=== PATIENT | female | born 1955 | race Caucasian/White ===

== ENCOUNTER 2018-03-16 11:02 | Inpatient (IN) ==
[2018-03-11 15:52] LABS: Appearance,Urine CLEAR; Bacteria,Urine FEW /hpf (0); Bilirubin,Urine NEG (NEG); Color,Urine YELLOW; Glucose,Urine (UA) NEGATIVE (NEG); Leukocyte Esterase,Urine 250 /uL (NEG); Mucus,Urine FEW /hpf (0); Protein,Urine NEG (NEG); Specific Gravity,Urine 1.008 (1.000-1.035); Urine Blood NEG mg/dL (<0.03); Urine RBC 4 /hpf (0-1); Urine Squamous Epithelial Cell 1 /hpf (0-4); Urine WBC 45 /hpf (0-4); Urobilinogen,Urine NEG (NEG)
[2018-03-11 18:28] LABS: Basophils # (Auto) 0 K/mcL (0.0-0.3); Basophils % (Auto) 0.2 % (0.0-2.0); Eosinophils # (Auto) 0 K/mcL (0.0-0.7); Eosinophils % (Auto) 0 % (0.0-7.0); Granulocytes % (Auto) 73.7 % (38.0-78.0); Lymphocytes # (Auto) 2.4 K/mcL (1.5-4.8); Lymphocytes % (Auto) 20.7 % (15.5-49.0); Mean Cell Volume 94.2 fL (80.0-100.0); Mean Corpuscular HGB Conc 32.2 g/dL (31.0-36.0); Mean Corpuscular Hemoglobin 30.4 pg (26.0-34.0); Monocytes # (Auto) 0.6 K/mcL (0.1-0.9); Monocytes % (Auto) 5.4 % (1.0-12.0); Platelet Count 233 K/mcL (140-440); RBC 4.79 M/mcL (4.00-5.20); Red Cell Distribution Width 13.5 % (11.5-14.5)
[2018-03-11 18:59] LABS: Blood Urea Nitrogen 15 mg/dl (8-23)
[~2018-03-16 11:02] MED LIST: ACETAMINOPHEN 500 MG TABLET PO SCH; CELECOXIB 200 MG CAPSULE PO SCH; KETOROLAC 30 MG, ROPIVACAINE HCL/PF 49.5 ML, EPINEPHrine 0.5 MG, 0.9 % SODIUM CHLORIDE ... IV SCH; ceFAZolin 1 GM VIAL IV SCH; oxyCODONE 10 MG TAB.ER.12H PO SCH
[2018-03-16] MEDS ORDERED: IPRATROPIUM/ALBUTEROL 3 ML AMPUL.NEB NEB ONE ×2 (12:50→12:54)
[2018-03-16 13:22] LABS: Appearance,Urine CLEAR; Bacteria,Urine 0 /hpf (0); Bilirubin,Urine NEG (NEG); Color,Urine YELLOW; Glucose,Urine (UA) NEGATIVE (NEG); Leukocyte Esterase,Urine 250 /uL (NEG); Mucus,Urine FEW /hpf (0); Protein,Urine NEG (NEG); Urine Blood NEG mg/dL (<0.03); Urine Hyaline Cast 1 /lpf (0-2); Urine RBC 2 /hpf (0-1); Urine Squamous Epithelial Cell 0 /hpf (0-4); Urine WBC 70 /hpf (0-4); Urobilinogen,Urine NEG (NEG)
[2018-03-16] MEDS ORDERED: METOPROLOL TARTRATE 5 MG/5 ML VIAL IV ONE (13:30)
[2018-03-16] MEDS ORDERED: DEXAMETHASONE 10 MG/ML VIAL IV ONE (13:30)
[2018-03-16] MEDS ORDERED: fentaNYL 100 MCG/2 ML VIAL IV ONE (13:30)
[2018-03-16] MEDS ORDERED: PROPOFOL 200 MG/20 ML VIAL IV ONE (13:30)
[2018-03-16] MEDS ORDERED: HYDROmorphone 2 MG/ML VIAL IV ONE (13:30)
[2018-03-16] MEDS ORDERED: GLYCOPYRROLATE 0.2 MG/ML VIAL IV ONE (13:30)
[2018-03-16] MEDS ORDERED: TRANEXAMIC ACID 1,000 MG/10 ML VIAL IV ONE ×2 (13:30→15:05)
[2018-03-16] MEDS ORDERED: MIDAZOLAM 2 MG/2 ML VIAL IV ONE (13:30)
[2018-03-16] MEDS ORDERED: methylPREDNISolone SOD SUCC 125 MG/2 ML VIAL IV ONE (13:30)
[2018-03-16] MEDS ORDERED: FAMOTIDINE/PF 20 MG/2 ML VIAL IV ONE (13:30)
[2018-03-16] MEDS ORDERED: KETAMINE 100 MG/ML ML IV ONE (13:30)
[2018-03-16] MEDS ORDERED: LIDOCAINE HCL/PF 100 MG/5 ML SYRINGE IV ONE (13:30)
[2018-03-16] MEDS ORDERED: ROPIVACAINE HCL/PF 20 ML VIAL IJ ONE (13:30)
[2018-03-16] MEDS ORDERED: ONDANSETRON 4 MG/2 ML VIAL IV ONE (13:30)
[2018-03-16] MEDS ORDERED: ONDANSETRON 4 MG/2 ML VIAL IV PRN ×2 (13:51→15:05)
[2018-03-16] MEDS ORDERED: fentaNYL 100 MCG/2 ML VIAL IV PRN (13:51)
[2018-03-16] MEDS ORDERED: PROMETHAZINE 25 MG/ML VIAL IM PRN (13:51)
[2018-03-16] MEDS ORDERED: METHOCARBAMOL 1,000 MG/10 ML VIAL IV PRN (13:51)
[2018-03-16] MEDS ORDERED: LACTATED RINGERS 250 ML IV PRN (13:51)
[2018-03-16] MEDS ORDERED: MEPERIDINE 25 MG/ML SYRINGE IV PRN (13:51)
[2018-03-16] MEDS ORDERED: NALOXONE HCL 0.4 MG/ML VIAL IV PRN (13:51)
[2018-03-16] MEDS ORDERED: PROMETHAZINE 25 MG/ML VIAL IV PRN (13:51)
[2018-03-16] MEDS ORDERED: IPRATROPIUM/ALBUTEROL 3 ML AMPUL.NEB NEB PRN (13:51)
[2018-03-16] MEDS ORDERED: FLUMAZENIL 0.1 MG/ML ML IV PRN (13:51)
[2018-03-16] MEDS ORDERED: BENZOCAINE/MENTHOL 1 LOZENGE PO PRN ×2 (13:51→15:05)
[2018-03-16] MEDS ORDERED: HYDROmorphone 2 MG/ML VIAL IV PRN ×2 (13:51→15:05)
[2018-03-16] MEDS ORDERED: MEPERIDINE 50 MG/ML INJECTION IM PRN (13:51)
[2018-03-16] MEDS ORDERED: LACTATED RINGERS 1,000 ML IV SCH (14:00)
[2018-03-16] MEDS ORDERED: GENTAMICIN SULFATE 800 MG/20 ML VIAL IR ONE (14:04)
[2018-03-16] MEDS ORDERED: MAGNESIUM HYDROXIDE 30 ML ORAL.SUSP PO PRN (15:05)
[2018-03-16] MEDS ORDERED: ACETAMINOPHEN 325 MG TABLET PO PRN (15:05)
[2018-03-16] MEDS ORDERED: POLYETHYLENE GLYCOL 3350 17 GM PACKET PO PRN ×2 (15:05→15:08)
[2018-03-16] MEDS ORDERED: FLEETS ADULT ENEMA PR PRN (15:05)
[2018-03-16] MEDS ORDERED: TEMAZEPAM 15 MG CAPSULE PO PRN (15:05)
[2018-03-16] MEDS ORDERED: BISACODYL 10 MG SUPP.RECT PR PRN (15:05)
--- NOTE | 2018-03-16 15:05 | Brief Operative Note ---
Date of procedure: 03/16/18 Pre-op diagnosis: right knee djd severe Post-op diagnosis: same Procedure: right tka with laureen robot Grafts/Implants: Yes Anesthesia: GETA Complications: none Complications Description: 03/16/18 15:04 none Surgeon: Navin Liao Ob/Gyn Physician: Augusto Ferreira Estimated blood loss (cc): 50 Tourniquet Time (Minutes): 50 Specimens Removed/Pathology: none sent Condition: stable Disposition: PACU
[2018-03-16] MEDS ORDERED: CYCLOBENZAPRINE 10 MG TABLET PO PRN (15:08)
[2018-03-16] MEDS: 0.45 % SODIUM CHLORIDE 1,000 ML IV SCH (15:57)
--- NOTE | 2018-03-16 16:15 | XRay Report ---
CLINICAL INFORMATION: Reason for Exam:Post-Op Total Knee COMPARISON: None. FINDINGS: Total knee prostheses is anatomically aligned. No osseous abnormality. Periarticular gas and soft tissue swelling seen as expected IMPRESSION: Negative Interpreted and Authenticated by: Reilly Urbano 03/16/18
--- NOTE | 2018-03-16 16:20 | Operative Note ---
DATE OF OPERATION: 03/16/2018 PREOPERATIVE DIAGNOSIS: Right knee degenerative arthritis, severe. POSTOPERATIVE DIAGNOSIS: Right knee degenerative arthritis, severe. PROCEDURE: Right total knee arthroplasty using the LUBNA robot. SURGEON: Navin Liao M.D. MEDICAL UNDERWRITER: Augusto Ferreira PA-C. ANESTHESIA: General LMA anesthesia. TOURNIQUET TIME: 50 minutes at 270 pounds. ESTIMATED BLOOD LOSS: 50 mL. COMPLICATIONS: None. DESCRIPTION OF PROCEDURE: The patient was brought to the operating room and put to sleep with general LMA anesthesia. Once asleep, the patient had the right leg sterilely prepped and draped in the usual sterile fashion. Timeout was performed. We confirmed the operative site both by consent form and x-rays. The patient's knee was exposed with a midline incision after confirming the operative site. We then exposed the joint showing severe arthritis in all three compartments. We then proceeded with placing the pins for the robotic total knee. Two pins above and below the knee were placed, and the arrays were placed. We registered the center of hip rotation, medial and lateral malleolus. Thirty points on the femur, thirty points on the tibia were all registered. We then balanced the knee at both 90 and 15 degrees in varus valgus planes. Once done, we then brought in the robot. The saw was inserted and retractors placed. We then made the bony cuts, both on the femur and the tibia. This aligned and balanced the knee perfectly. We removed these bony fragments and then removed the remnants of the meniscus. Spurs were removed posteriorly and medial and laterally. We then trialed the component. These were tapped into place on both the femur and the tibia. Size 3 components with a 9 mm poly which gave us 3.5 degree flexion contracture. She started at 4 to 5. It gave us about 3 degrees of varus. She started at 4 to 5 degrees of varus. This corrected both planes. We irrigated thoroughly, perfectly balanced, and then we cut the patella measuring 22 mm to 12 mm and cemented into place an oval 36 x 10 mm poly. All these components were then cemented into place, taking any excess cement away. The bone was prepared with pulse lavage and CarboJet to make sure the bone penetrated well. There was a small tumor which seemed to be a bony island in the anterior femur metaphyseal region. This was removed and sent for pathology. This did not look to be aggressive, but just to be safe. We then inserted cement into the void and irrigated thoroughly and placed the knee at 45 degrees. We deflated the tourniquet at approximately 50 minutes. Total pressure was 270 pounds. The patient tolerated this well. There were no complications. The wound was closed with #1 Stratafix on the capsular layer, a Stratafix in the fatty layer and 2-0 Vicryl and vandana. The patient tolerated this well. There was no complication. The patient had a sterile bandage applied. All pins were removed, intra-articular pins were removed and accounted for. RBH:tucker Job ID: [id number] Doc ID: [id number] Navin Liao MD
[2018-03-16] MEDS: KETOROLAC 15 MG/ML VIAL IV SCH ×2 (17:44→23:54)
[2018-03-16] MEDS: metFORMIN 500 MG TABLET PO SCH (17:44)
[2018-03-16] MEDS: oxyCODONE/APAP 5/325MG TABLET PO PRN (17:52)
[2018-03-16] MEDS: ceFAZolin 1 GM VIAL IV SCH (20:53)
[2018-03-16] MEDS: CALCIUM W/VIT D3 500 MG TABLET PO SCH (20:54)
[2018-03-16] MEDS: METHADONE 5 MG TABLET PO SCH (20:54)
[2018-03-16] MEDS: HYDROXYCHLOROQUINE 200 MG TABLET PO SCH (20:55)
[2018-03-16] MEDS: FAMOTIDINE 20 MG TABLET PO SCH (20:55)
[2018-03-16] MEDS: SIMVASTATIN 40 MG TABLET PO SCH (20:57)
[2018-03-16] MEDS: MAGNESIUM OXIDE 400 MG TABLET PO SCH (20:57)
[2018-03-16] MEDS: traZODone HCL 150 MG TABLET PO SCH (20:57)
[2018-03-16] MEDS: DOCUSATE SODIUM 100 MG CAPSULE PO SCH (20:58)
[2018-03-16] MEDS ORDERED: HYDROCORTISONE 20 MG PO SCH (21:00)
[2018-03-16] MEDS: ASPIRIN 325 MG ENTERIC COATED TABLET PO SCH (21:03)
[2018-03-16] MEDS: SENNOSIDES 1 TABLET PO SCH (21:04)
[2018-03-16] MEDS: BECLOMETHASONE DIPROPIONATE 40MCG INHALER INH SCH (21:57)
[2018-03-16] MEDS: 0.9 % SODIUM CHLORIDE 10 ML SYRINGE IV SCH (22:03)
[2018-03-17] MEDS: oxyCODONE/APAP 5/325MG TABLET PO PRN ×5 (00:16→18:02)
[2018-03-17] MEDS: 0.45 % SODIUM CHLORIDE 1,000 ML IV SCH ×3 (02:07→21:30)
[2018-03-17] MEDS: traMADol 50 MG TABLET PO PRN ×2 (03:09→12:33)
[2018-03-17] MEDS: ceFAZolin 1 GM VIAL IV SCH (05:02)
[2018-03-17] MEDS: KETOROLAC 15 MG/ML VIAL IV SCH ×3 (06:03→18:01)
[2018-03-17] MEDS: 0.9 % SODIUM CHLORIDE 10 ML SYRINGE IV SCH ×3 (06:03→21:30)
[2018-03-17] MEDS: LEVOTHYROXINE SODIUM 112 MCG TABLET PO SCH (07:02)
[2018-03-17] MEDS: LEVOTHYROXINE 25 MCG TABLET PO SCH (07:02)
--- NOTE | 2018-03-17 07:32 | Orthopedic Progress Note ---
Subjective Patient information: Note initiated : 03/17/18 at 7:31 am Service Date, if different from initiated Date: [] Patient: Danielle Maya 62 y/o F admitted on 03/16/18 for Left Total Knee Arthroplasty - Mario. Chief Complaint: [Pt is stable this morning on post operative day 1 without any significant concerns or complaints. Patients vital signs have remained stable. Patients dressing is dry and is grossly instact from a neurovascular and motor standpoint. Patients 10 point ROS is otherwise negative. ] Objective Vital signs: Vital Signs Temp Pulse Resp BP Pulse Ox 03/17/18 04:00 98.7 F 82 12 143/78 95 03/17/18 00:00 97.5 F 86 12 129/72 94 03/16/18 22:40 91 03/16/18 20:00 97.9 F 94 H 12 119/81 96 03/16/18 17:10 124/76 92 03/16/18 16:25 108/75 94 03/16/18 16:11 95 03/16/18 16:10 116/70 93 03/16/18 16:05 116/78 95 03/16/18 15:55 120/76 95 03/16/18 15:45 98.1 F 99 H 17 120/72 98 03/16/18 15:40 100 H 17 122/68 98 03/16/18 15:35 101 H 13 114/86 97 03/16/18 15:30 102 H 20 105/64 99 03/16/18 15:25 105 H 17 115/69 95 03/16/18 15:20 108 H 20 112/87 97 03/16/18 15:15 97.9 F 88 18 127/65 97 03/16/18 11:50 96 H 20 116/79 97 Intake and Output 03/16/18 03/17/18 03/17/18 21:59 05:59 13:59 Intake Total 2660 / 2660 1850 / 1850 Output Total 1280 / 1280 400 / 400 200 / 200 Balance 1380 / 1380 1450 / 1450 -200 / -200 Intake: IV 1500 / 1500 Oral 1160 / 1160 1850 / 1850 Output: Void Amount 1250 / 1250 400 / 400 200 / 200 Estimated Blood Loss 30 / 30 Other: Weight 278 lb Intake & Output: Intake & Output 03/16/18 03/17/18 03/17/18 21:59 05:59 13:59 Intake Total 2660 / 2660 1850 / 1850 Output Total 1280 / 1280 400 / 400 200 / 200 Balance 1380 / 1380 1450 / 1450 -200 / -200 Weight 278 lb Intake: IV 1500 / 1500 Oral 1160 / 1160 1850 / 1850 Output: Void Amount 1250 / 1250 400 / 400 200 / 200 Estimated Blood Loss Incision: Yes healing Incision clean and dry: Yes Dressing: Yes clean Weight bearing status: full Neurological exam IM: Yes motor sensory intact, Yes neurovascular intact Extremities exam IM: Yes Foot pink and warm, Yes neurovascular intact - Labs CBC & BMP: 03/17/18 04:54 03/11/18 14:03 Labs: 03/17/18 03/11/18 04:54 14:03 Hgb 14.6 Hct 36.6 45.1 Assessment and Plan (1) Hx of total knee arthroplasty The patient has been educated regarding dressing care, Physical Therapy recommendations, home exercises, restrictions, and follow up appointments. The patient has had all necessary DME prescribed. The patient has remained relatively stable during their hospital course. Status: Acute
--- NOTE | 2018-03-17 07:40 | Discharge Summary ---
Ortho Discharge - TKA - Patient Instructions Diet: Regular Diet Activity: activity as tolerated, weight bearing as tolerated Total Knee Protocol: For Total Knee: Start ROM HARJIT with stationary bike or rocking chair. Work on gaining full extension of knee. Posterior dislocation precautions provided. Hip abductor strengthening and gait training instructions provided. Apply Cryocuff as instructed. Dressing Care: May shower in 3 days, Aquacel Ag - leave on for 5 days Additional Instructions: CPM for home use - Problem Maintenance (1) Hx of total knee arthroplasty Status: Acute - Follow Up Plan Follow Up Appointments: Augusto Ferreira PA-C [Physician [employer]] - 03/31/18 3:00 pm Disposition: Xfer SNF Prognosis: Good Rehab Potential: Good I certify that the patient requires SNF services: No Overall status at discharge: patient is progressing back to baseline - Orders For Discharge Prescriptions: Aspirin [Ecotrin] 325 mg PO BID #60 tab.ec Docusate Sodium [Colace] 100 mg PO BID #60 capsule oxyCODONE/APAP [Percocet 5-325 mg] 1 - 2 tab PO Q4HP PRN #75 tablet PRN Reason: Pain Level 3-6
[2018-03-17] MEDS ORDERED: LEVOTHYROXINE SODIUM 137 MCG PO SCH (09:00)
[2018-03-17] MEDS ORDERED: DHEA PO SCH (09:00)
[2018-03-17] MEDS: HYDROCORTISONE 20 MG PO SCH (09:24)
[2018-03-17] MEDS: DOCUSATE SODIUM 100 MG CAPSULE PO SCH ×2 (09:25→21:14)
[2018-03-17] MEDS: SERTRALINE 50 MG TABLET PO SCH (09:25)
[2018-03-17] MEDS: FISH OIL 1,000 MG CAPSULE PO SCH (09:25)
[2018-03-17] MEDS: metFORMIN 500 MG TABLET PO SCH ×2 (09:26→18:01)
[2018-03-17] MEDS: FAMOTIDINE 20 MG TABLET PO SCH ×2 (09:26→21:18)
[2018-03-17] MEDS: METHADONE 5 MG TABLET PO SCH ×3 (09:26→21:16)
[2018-03-17] MEDS: CALCIUM W/VIT D3 500 MG TABLET PO SCH ×2 (09:26→21:16)
[2018-03-17] MEDS: MAGNESIUM OXIDE 400 MG TABLET PO SCH ×2 (09:26→21:14)
[2018-03-17] MEDS: FUROSEMIDE 20 MG TABLET PO SCH (09:26)
[2018-03-17] MEDS: LISINOPRIL 5 MG TABLET PO SCH (09:26)
[2018-03-17] MEDS: HYDROXYCHLOROQUINE 200 MG TABLET PO SCH ×2 (09:26→21:16)
[2018-03-17] MEDS: ASPIRIN 325 MG ENTERIC COATED TABLET PO SCH ×2 (09:26→21:25)
[2018-03-17] MEDS: PYRIDOXINE 100 MG TABLET PO SCH (09:27)
[2018-03-17] MEDS: BECLOMETHASONE DIPROPIONATE 40MCG INHALER INH SCH ×2 (09:29→21:18)
[2018-03-17] MEDS: FLUTICASONE PROPIONATE SPRAY.NAS NS PRN (09:29)
[2018-03-17] MEDS ORDERED: HYDROCORTISONE 20 MG PO SCH (15:00)
--- NOTE | 2018-03-17 15:43 | Surgical Pathology Report ---
HISTOLOGY SPECIMEN MICROSCOPIC DIAGNOSIS BONE, LEFT FEMUR, BIOPSY: -- MULTIPLE PORTIONS OF DEGENERATED CARTILAGE WITH A FEW MINUTE FRAGMENTS OF LAMELLAR BONE. (SEE COMMENT) -- NO MALIGNANT FEATURES IDENTIFIED. (ACP:djf) COMMENT: The biopsy has multiple fragmented portions of degenerated hyalin cartilage with rare minute fragments of lamellar bone. Areas of marked reactive change in noted within portions of cartilage along with irregular areas of ossification. The changes are suggestive of an enchondroma or exostosis (osteochondroma). Clinical and radiographic correlation is recommended. No malignant features are seen. PROCEDURAL IMPRESSION Left knee osteoarthritis. GROSS DESCRIPTION Received in formalin labeled with the patient information, are multiple firm, rough surfaced yellow to pink-joseph bone fragments, in aggregate 2.5 x 1.0 x 0.1 cm. The specimen is filtered and entirely submitted - one cassette, following decalcification. (STS:sln) Electronically Signed by: Ravi Rincon M.D.
[2018-03-17] MEDS: traZODone HCL 150 MG TABLET PO SCH (21:14)
[2018-03-17] MEDS: SIMVASTATIN 40 MG TABLET PO SCH (21:14)
[2018-03-17] MEDS: SENNOSIDES 1 TABLET PO SCH (21:15)
[2018-03-18] MEDS: oxyCODONE/APAP 5/325MG TABLET PO PRN ×6 (00:03→20:30)
[2018-03-18] MEDS: KETOROLAC 15 MG/ML VIAL IV SCH ×3 (00:03→12:35)
[2018-03-18] MEDS: 0.9 % SODIUM CHLORIDE 10 ML SYRINGE IV SCH ×3 (06:03→20:28)
[2018-03-18] MEDS: LEVOTHYROXINE SODIUM 112 MCG TABLET PO SCH (06:57)
[2018-03-18] MEDS: LEVOTHYROXINE 25 MCG TABLET PO SCH (06:58)
[2018-03-18] MEDS: metFORMIN 500 MG TABLET PO SCH ×2 (08:00→17:42)
[2018-03-18] MEDS: 0.45 % SODIUM CHLORIDE 1,000 ML IV SCH ×2 (09:06→18:35)
[2018-03-18] MEDS: CALCIUM W/VIT D3 500 MG TABLET PO SCH ×2 (09:07→20:29)
[2018-03-18] MEDS: DOCUSATE SODIUM 100 MG CAPSULE PO SCH ×2 (09:07→20:29)
[2018-03-18] MEDS: LISINOPRIL 5 MG TABLET PO SCH (09:08)
[2018-03-18] MEDS: FAMOTIDINE 20 MG TABLET PO SCH ×2 (09:09→20:29)
[2018-03-18] MEDS: FISH OIL 1,000 MG CAPSULE PO SCH (09:09)
[2018-03-18] MEDS: MAGNESIUM OXIDE 400 MG TABLET PO SCH ×2 (09:09→20:29)
[2018-03-18] MEDS: HYDROXYCHLOROQUINE 200 MG TABLET PO SCH ×2 (09:09→20:29)
[2018-03-18] MEDS: SERTRALINE 50 MG TABLET PO SCH (09:09)
[2018-03-18] MEDS: FUROSEMIDE 20 MG TABLET PO SCH (09:10)
[2018-03-18] MEDS: METHADONE 5 MG TABLET PO SCH ×3 (09:10→20:30)
[2018-03-18] MEDS: PYRIDOXINE 100 MG TABLET PO SCH (09:12)
[2018-03-18] MEDS: ASPIRIN 325 MG ENTERIC COATED TABLET PO SCH (09:12)
[2018-03-18] MEDS: BECLOMETHASONE DIPROPIONATE 40MCG INHALER INH SCH ×2 (09:21→20:31)
[2018-03-18] MEDS: FLUTICASONE PROPIONATE SPRAY.NAS NS PRN (09:22)
[2018-03-18] MEDS: HYDROCORTISONE 20 MG PO SCH (09:27)
[2018-03-18] MEDS: ONDANSETRON ODT 4 MG TABLET SL PRN (13:06)
[2018-03-18] MEDS ORDERED: WARFARIN 3 MG TABLET PO SCH (14:00)
[2018-03-18] MEDS: traMADol 50 MG TABLET PO PRN (14:32)
[2018-03-18] MEDS ORDERED: HYDROCORTISONE 20 MG PO SCH (15:00)
--- NOTE | 2018-03-18 17:36 | Orthopedic Progress Note ---
Subjective Patient information: Note initiated : 03/18/18 at 5:34 pm Service Date, if different from initiated Date: [] Patient: Danielle Maya 62 y/o F admitted on 03/16/18 for Left Total Knee Arthroplasty - Mario. Chief Complaint: [minimal pain and is walking well with no cp no sob ] Objective Vital signs: Vital Signs Temp Pulse Resp BP Pulse Ox 03/18/18 12:00 97.7 F 85 14 120/79 94 03/18/18 08:00 95 03/18/18 07:15 97.7 F 83 14 119/76 94 03/18/18 04:00 97.9 F 85 14 126/81 94 03/18/18 00:00 97.5 F 82 14 149/79 94 03/17/18 20:00 98.5 F 87 14 146/80 95 Intake and Output 03/18/18 03/18/18 03/18/18 05:59 13:59 21:59 Intake Total 500 / 500 1160 / 1160 800 / 800 Output Total 1500 / 1500 650 / 650 1450 / 1450 Balance -1000 / -1000 510 / 510 -650 / -650 Intake: Oral 500 / 500 1160 / 1160 800 / 800 Output: Void Amount 1500 / 1500 650 / 650 1450 / 1450 Other: Meal Lunch Nourishment/Supplement Percent of Meal Consumed 100% 100% # Voids 2 1 Intake & Output: Intake & Output 03/18/18 03/18/18 03/18/18 05:59 13:59 21:59 Intake Total 500 / 500 1160 / 1160 800 / 800 Output Total 1500 / 1500 650 / 650 1450 / 1450 Balance -1000 / -1000 510 / 510 -650 / -650 Intake: Oral 500 / 500 1160 / 1160 800 / 800 Output: Void Amount 1500 / 1500 650 / 650 1450 / 1450 Other: Meal Lunch Nourishment/Supplement Percent of Meal Consumed 100% 100% # Voids 2 1 Incision: Yes healing Incision clean and dry: Yes Dressing: Yes clean, Yes intact Weight bearing status: as tolerated Neurological exam IM: Yes oriented X3, Yes neurovascular intact Extremities exam IM: Yes Foot pink and warm (will plan dc to snf and patient need is noted), Yes neurovascular intact - Labs CBC & BMP: 03/17/18 04:54 03/11/18 14:03 Labs: 03/17/18 03/11/18 04:54 14:03 Hgb 14.6 Hct 36.6 45.1
[2018-03-18] MEDS: SENNOSIDES 1 TABLET PO SCH (20:28)
[2018-03-18] MEDS: SIMVASTATIN 40 MG TABLET PO SCH (20:29)
[2018-03-18] MEDS: traZODone HCL 150 MG TABLET PO SCH (20:29)
[2018-03-19] MEDS: oxyCODONE/APAP 5/325MG TABLET PO PRN ×3 (00:15→07:25)
[2018-03-19] MEDS: 0.45 % SODIUM CHLORIDE 1,000 ML IV SCH (03:36)
[2018-03-19] MEDS: 0.9 % SODIUM CHLORIDE 10 ML SYRINGE IV SCH (04:20)
[2018-03-19] MEDS: LEVOTHYROXINE SODIUM 112 MCG TABLET PO SCH (07:10)
[2018-03-19] MEDS: LEVOTHYROXINE 25 MCG TABLET PO SCH (07:10)
[2018-03-19] MEDS: METHADONE 5 MG TABLET PO SCH (08:46)
[2018-03-19] MEDS: HYDROXYCHLOROQUINE 200 MG TABLET PO SCH (08:47)
[2018-03-19] MEDS: FUROSEMIDE 20 MG TABLET PO SCH (08:47)
[2018-03-19] MEDS: FISH OIL 1,000 MG CAPSULE PO SCH (08:47)
[2018-03-19] MEDS: CALCIUM W/VIT D3 500 MG TABLET PO SCH (08:47)
[2018-03-19] MEDS: DOCUSATE SODIUM 100 MG CAPSULE PO SCH (08:47)
[2018-03-19] MEDS: MAGNESIUM OXIDE 400 MG TABLET PO SCH (08:47)
[2018-03-19] MEDS: LISINOPRIL 5 MG TABLET PO SCH (08:47)
[2018-03-19] MEDS: FAMOTIDINE 20 MG TABLET PO SCH (08:47)
[2018-03-19] MEDS: PYRIDOXINE 100 MG TABLET PO SCH (08:48)
[2018-03-19] MEDS: SERTRALINE 50 MG TABLET PO SCH (08:48)
[2018-03-19] MEDS: HYDROCORTISONE 20 MG PO SCH (08:54)
[2018-03-19] MEDS: metFORMIN 500 MG TABLET PO SCH (09:01)
[2018-03-19] MEDS: BECLOMETHASONE DIPROPIONATE 40MCG INHALER INH SCH (09:02)
[2018-03-19] MEDS: ONDANSETRON ODT 4 MG TABLET SL PRN (09:05)
[2018-03-22] MEDS ORDERED: ALENDRONATE SODIUM 70 MG TABLET PO SCH (07:00)
--- NOTE | 2018-03-31 10:34 | Discharge Summary ---
DATE OF ADMISSION: 03/16/2018 DATE OF DISCHARGE: 03/19/2018 ADMITTING DIAGNOSIS: Right knee degenerative osteoarthritis. DISCHARGE DIAGNOSIS: Right knee degenerative osteoarthritis status post right total knee arthroplasty. DISCHARGE CONDITION: Stable. CONSULTATIONS: None. PROCEDURE PERFORMED: Right total knee arthroplasty was completed on the date of admission. The procedure went without complications and there was minimal blood loss. Following the procedure the patient was taken to recovery room in stable condition. When deemed stable, was taken to the hospital floor for further observation and recovery. HISTORY OF PRESENT ILLNESS: This pleasant patient has exhausted conservative care measures in the office that has included trials with anti-inflammatories, pain medications, injections and physical therapy. The patient has discussed non-operative and operative options with Dr. Liao at length. Due to the exhausting conservative measures the patient desired to proceed forth with operative care. HOSPITAL COURSE: The patient remained stable throughout the hospital course and exhibited normal neurovascular examinations throughout the stay. The patient worked with physical therapy per standard protocols. The patient had no incidents during the hospital course. The patient also had a stable physical exam upon discharge. The patient did not meet the discharge criteria to home and required shelter services and was discharged in a stable state. DISCHARGE PHYSICAL EXAMINATION: VITAL SIGNS: Stable as above. GENERAL: Patient is awake, alert and oriented x3. HEENT: Head was normocephalic. NECK: Supple, no adenopathy or thyromegaly. CHEST: CTA, no wheezing, rhonchi or rales. HEART: NSR, no gallops, rubs or murmurs. MUSCULOSKELETAL: Lower extremities revealed grossly intact motor exam. NEUROLOGIC: Deep tendon response and light touch, motor, neurosensory exam was stable. SKIN: The incision was intact and the dressing had been changed to the Acticoat dressing. There were no abnormal skin markings, lesions, erythema, rashes or other skin breakdown. DISCHARGE INSTRUCTIONS/MEDICATIONS: The patient received our standard written discharge instruction sheet. These instructions included information regarding weightbearing status, activity level, diet, wound care, physical therapy instructions, bathing restrictions, shower recommendations, follow-up guidelines, driving restrictions and monitoring the wound for signs of infection that could include but not necessarily to fevers above 101.5, sweats, chills, redness, increased pain or drainage. Should any of these occur the patient was educated to contact our office at once. MEDICATIONS: The patient was restarted on normal primary care medications. Patient was also prescribed [place] 10/325 mg with instructions for 1 to 2 tabs by mouth every 4 to 6 hours as needed for pain, quantity 75 with 2 refills. The patient will be placed on 325 mg aspirin, 1 a day for 30 days post surgery. [facility] will monitor the patient's PT/INR. FOLLOWUP: Patient will follow up at [facility] 2 weeks from surgery for a postop wound check and staple removal. They will be able to certain follow up sooner with any problems or concerns. BAP:tucker Job ID: [id number] Doc ID: [id number] Augusto Ferreira PA-C
== END 2018-03-19 11:05 | DRG 470 ==
LOC: MEDSUR 11:02
PROVIDERS: ADMIT Orthopaedic Surgery; ATTEND Orthopaedic Surgery